=== PATIENT | female | born 1980 | race Two or more races ===

== ENCOUNTER 2016-12-28 10:02 | Emergency (ER) | payer OTHER ==
[~2016-12-28] VITALS: Ht 167.6 cm; Wt 81.6 kg
[~2016-12-28 10:02] MED LIST: CYCL10TA2 PO
[2016-12-28] MEDS ORDERED: DIPHTH,PERTUSS(ACELL),TET TOX 0.5 ML DISP.SYRIN. VAX IM ONE (11:00)
[2016-12-28 11:10] VITALS: BP 124/63
--- NOTE | 2016-12-28 11:10 | PHYS DOC ---
Past Medical History Past Medical History: No Pertinent History Past Surgical History: No Surgical History Alcohol Use: None Drug Use: None Adult General Chief Complaint Chief Complaint: LACERATION/AVULSION HPI HPI Patient is a 36 year old female who presents with right ring finger laceration that occurred yesterday while removing items from a mirror. The mirror cut her. Review of Systems Review of Systems Constitutional: Denies fever or chills [] Eyes: Denies change in visual acuity, redness, or eye pain [] HENT: Denies nasal congestion or sore throat [] Musculoskeletal: Denies back pain or joint pain [] Integument: Right ring finger laceration Neurologic: Denies headache, focal weakness or sensory changes [] Endocrine: Denies polyuria or polydipsia [] Current Medications Current Medications Current Medications Medications (Trade) Dose Ordered Sig/Funmilayo Start Time Stop Time Status Last Admin Dose Admin Diphtheria/ Tetanus/Acell Pertussis (Boostrix) 0.5 ml ONCE ONCE 12/28/16 11:00 12/28/16 11:01 DC Allergies Allergies Allergies Coded Allergies Type Severity Reaction Last Updated Verified No Known Drug Allergies 10/15/15 No Physical Exam Physical Exam Constitutional: Well developed, well nourished, no acute distress, non-toxic appearance. [] HENT: Normocephalic, atraumatic, bilateral external ears normal, oropharynx moist, no oral exudates, nose normal. [] Eyes: PERRLA, EOMI, conjunctiva normal, no discharge. [] Neck: Normal range of motion, no tenderness, supple, no stridor. [] Cardiovascular:Heart rate regular rhythm, no murmur [] Lungs & Thorax: Bilateral breath sounds clear to auscultation [] Abdomen: Bowel sounds normal, soft, no tenderness, no masses, no pulsatile masses. [] Skin: Right ring finger PIP joint dorsal aspect with a partial skin avulsion laceration approximately 1 cm long. There is no tendon involvement. Full range of motion to the right ring finger. The patient able to flex and extend the right ring finger at the MIP PIP and DIP joints. Adequate radial medial and ulnar sensation to the right fingers. +2 right radial pulse. Cap refill less than 2 seconds the right upper extremity. Sensation intact to the right upper extremity. Back: No tenderness, no CVA tenderness. [] Extremities: No tenderness, no cyanosis, no clubbing, ROM intact, no edema. [] Neurologic: Alert and oriented X 3, normal motor function, normal sensory function, no focal deficits noted. [] Psychologic: Affect normal, judgement normal, mood normal. [] EKG EKG [] Radiology/Procedures Radiology/Procedures [] Course & Med Decision Making Course & Med Decision Making Pertinent Labs and Imaging studies reviewed. (See chart for details) Patient has right ring finger laceration that occurred yesterday, no sutures required today. Recommended Neosporin to the area. Given tetanus in the ED. Provided return precautions and discharged in stable condition. Dragon Disclaimer Dragon Disclaimer This electronic medical record was generated, in whole or in part, using a voice recognition dictation system. Departure Departure Impression: Primary Impression: Finger laceration Disposition: 01 HOME, SELF-CARE Condition: STABLE Referrals: NO PCP (PCP) Follow-up with your doctor as needed Patient Instructions: Fingertip Laceration Additional Instructions: You have right ring finger laceration. Keep it clean and dry. Apply Neosporin to it twice a day. Monitor it for signs and symptoms of infection including increased redness warmth or odor drainage from the area and return to the ED if they occur. Right now it does not look infected. Problem Qualifiers Primary Impression: Finger laceration Encounter type: initial encounter Qualified Codes: S61.219A - Laceration without foreign body of unspecified finger without damage to nail, initial encounter KRISTIN GRECO APRN December 28, 2016 11:10
== END 2016-12-28 11:25 | disposition home or self-care (01) ==
LOC: ER 10:23
DX: S61.214A Laceration without foreign body of right ring finger without damage to nail, initial encounter (principal); W25.XXXA Contact with sharp glass, initial encounter; Y93.89 Activity, other specified; Y92.89 Other specified places as the place of occurrence of the external cause; Y99.8 Other external cause status
CPT/HCPCS: 90471; 90715; 99283-25

== ENCOUNTER 2017-03-29 17:01 | Emergency (ER) | payer OTHER ==
[~2017-03-29] VITALS: Ht 167.6 cm; Wt 81.6 kg
--- NOTE | 2017-03-29 17:08 | PHYS DOC ---
Past Medical History Past Medical History: No Pertinent History Past Surgical History: No Surgical History Alcohol Use: None Drug Use: None Adult General Chief Complaint Chief Complaint: SKIN RASH/ABSCESS HPI HPI Patient is a 36 year old resents to the emergency department with complaints of poison libby. She states she was pulling weeds 2 days ago and developed a itching rash on the neck, arms and chest Review of Systems Review of Systems Constitutional: Denies fever or chills [] Eyes: Denies change in visual acuity, redness, or eye pain [] HENT: Denies nasal congestion or sore throat [] Respiratory: Denies cough or shortness of breath [] Cardiovascular: No additional information not addressed in HPI [] GI: Denies abdominal pain, nausea, vomiting, bloody stools or diarrhea [] : Denies dysuria or hematuria [] Musculoskeletal: Denies back pain or joint pain [] Integument: Rash Neurologic: Denies headache, focal weakness or sensory changes [] Endocrine: Denies polyuria or polydipsia [] Allergies Allergies Allergies Coded Allergies Type Severity Reaction Last Updated Verified No Known Drug Allergies 10/15/15 No Physical Exam Physical Exam Constitutional: Well developed, well nourished, no acute distress, non-toxic appearance. [] Respiratory: Breath sounds clear to auscultate throughout. Skin: Patient's anterior chest, neck, bilateral upper extremities and lower back with linear vesicular lesions. There is no lesions noted on her face. No facial swelling. Neurologic: Alert and oriented X 3, normal motor function, normal sensory function, no focal deficits noted. [] Current Patient Data Vital Signs Vital Signs Date Time Temp Pulse Resp B/P (MAP) Pulse Ox O2 Delivery O2 Flow Rate FiO2 03/29/17 17:09 98.0 78 18 98 Room Air 98.0 EKG EKG [] Radiology/Procedures Radiology/Procedures [] Course & Med Decision Making Course & Med Decision Making Medrol 80 mg IM in the emergency department Pertinent Labs and Imaging studies reviewed. (See chart for details) [] Dragon Disclaimer Dragon Disclaimer This electronic medical record was generated, in whole or in part, using a voice recognition dictation system. Departure Departure Impression: Primary Impression: Poison libby dermatitis Disposition: 01 HOME, SELF-CARE Condition: STABLE Referrals: NO PCP (PCP) [facility] Patient Instructions: Poison Libby Additional Instructions: [id number] Benadryl as labeled and is indicated for symptom management. May use hyyx-[id number] poison libby products as labeled and is indicated for symptom management. RENATA MORROW ASSOCIATE TEAM PHYSICIAN Mar 29, 2017 17:08
[2017-03-29] MEDS ORDERED: methylPREDNISolone ACETATE 80 MG/ML VIAL. IM ONE (17:45)
== END 2017-03-29 17:32 | disposition home or self-care (01) ==
LOC: ER 17:01
DX: L23.7 Allergic contact dermatitis due to plants, except food (principal)
CPT/HCPCS: 96372; 99283; J1040

== ENCOUNTER 2020-10-10 17:59 | Emergency (ER) | payer OTHER ==
[~2020-10-10] VITALS: Ht 167.6 cm; Wt 86.0 kg
[2020-10-10 18:00] VITALS: BP 148/66
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
[2020-10-10 18:28] LABS: BILIRUBIN,URINE NEGATIVE (NEG); CLARITY,URINE CLEAR; COLOR,URINE YELLOW; NITRITE,URINE NEGATIVE (NEG); PROTEIN,URINE NEGATIVE (NEG-TRACE)
[2020-10-10] MEDS ORDERED: cefTRIAXone IM 250 MG VIAL IM ONE (18:30)
[2020-10-10] MEDS ORDERED: AZITHROMYCIN 250 MG TABLET. PO ONE (18:30)
[2020-10-10 18:34] LABS: BACTERIA,URINE FEW /HPF (0-FEW); RBC,URINE OCC /HPF (0-2)
[2020-10-10] MEDS ORDERED: metroNIDAZOLE 500 MG TABLET PO ONE (18:45)
[2020-10-12 22:08] LABS: GC PROBE Positive (Negative)
== END 2020-10-10 19:00 | disposition home or self-care (01) ==
LOC: ER 17:59
DX: N76.0 Acute vaginitis (principal); B96.89 Other specified bacterial agents as the cause of diseases classified elsewhere; Z98.890 Other specified postprocedural states
CPT/HCPCS: 81001; 81025; 87491; 87591; 96372; 99284; J0696; Q0111

== ENCOUNTER 2021-01-09 21:34 | Emergency (ER) | payer OTHER ==
[~2021-01-09] VITALS: Ht 165.1 cm; Wt 86.0 kg
[2021-01-09 21:40] VITALS: BP 134/87
[2021-01-09] MEDS ORDERED: CYCL10TA2 PO (22:52)
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
== END 2021-01-09 22:55 | disposition home or self-care (01) ==
LOC: ER 21:34
DX: M54.9 Dorsalgia, unspecified (principal); M25.511 Pain in right shoulder; M54.2 Cervicalgia; V49.49XA Driver injured in collision with other motor vehicles in traffic accident, initial encounter; Y93.89 Activity, other specified; Y92.410 Unspecified street and highway as the place of occurrence of the external cause; Y99.8 Other external cause status
CPT/HCPCS: 99283